=== PATIENT | male | born 1945 | race African-American/Black ===

== ENCOUNTER 2023-02-01 06:21 | Outpatient (REF) | payer MEDICARE, SELFPAY ==
[2023-02-01 07:05] LABS: MANUAL DIFF FLAG NO
[2023-02-01 07:39] LABS: Anion Gap 13 (12-20); Basophils Percent Auto 0.7 % (0-2); Blood Urea Nitrogen 15 mg/dL (9-16); Calcium 9.4 mg/dL (8.4-10.2); Carbon Dioxide 22 mmol/L (22-29); Chloride 109 mmol/L (96-108); Eosinophils Absolute Auto 0.1 X10*3/uL (0.0-0.4); Eosinophils Percent Auto 2.7 % (0-4); Estimated Glomerular Filt Rate > 60; Glucose Fasting 90 mg/dL (60-99); Hematocrit 34.4 % (42.0-52.0); Hemoglobin 11.5 g/dl (14.0-18.0); Imm Gran Abs Auto 0.01 X10*3/uL (0.00-0.03); Imm Gran Pct Auto 0.2 % (0.0-0.4); Lymphocytes Absolute Auto 0.9 X10*3/uL (1.2-4.9); Lymphocytes Percent Auto 19.8 % (20-40); Mean Corpuscular HGB Conc 33.4 g/dl (31.0-36.0); Mean Corpuscular Hemoglobin 33.9 pg (27.0-33.0); Mean Corpuscular Volume 101.5 fL (80.0-98.0); Mean Platelet Volume 9.9 fL (9.4-12.4); Monocytes Absolute Auto 0.3 X10*3/uL (0.1-1.2); Monocytes Percent Auto 6.8 % (2-11); Neutrophils Absolute Auto 3.1 x10*3/uL (2.0-8.3); Neutrophils Percent Auto 69.8 % (45-73); Platelet Count 225 X10*3/uL (160-400); Potassium 4.1 mmol/L (3.3-5.1); Red Blood Count 3.39 X10*6/uL (4.60-5.80); Red Cell Distribution Width 13.2 % (11.0-16.0); Sodium 140 mmol/L (135-145); White Blood Count 4.4 X10*3/uL (4.8-10.8)
[2023-02-01 07:56] LABS: Ferritin 221 ng/mL (20-250); Thyroid Stimulating Hormone 1.24 uIU/mL (0.32-4.0); Vitamin D 25-OH Total 25.5 ng/mL (>30)
[2023-02-01 08:09] LABS: Prostate Specific Antigen Scr 0.28 ng/mL (<0.05-4.0); Vitamin B12 488 pg/mL (200-900)
[2023-02-03 21:04] LABS: TS Negative Control Passed; TS Panel A 3; TS Panel B 0; TS Positive Control Passed; TSpotTB Negative (Negative)
== END 2023-02-01 06:22 | disposition home or self-care (01) ==
LOC: HO.HSH2E 06:21
PROVIDERS: Visit Provider Internal Medicine Medical Oncology
DX: N40.0 Benign prostatic hyperplasia without lower urinary tract symptoms (principal); G31.83 Neurocognitive disorder with Lewy bodies; F02.80 Dementia in other diseases classified elsewhere, unspecified severity, without behavioral disturbance, psychotic disturbance, mood disturbance, and anxiety; I10 Essential (primary) hypertension; C61 Malignant neoplasm of prostate; Z12.5 Encounter for screening for malignant neoplasm of prostate
CPT/HCPCS: 36415; 80048; 81001; 82306; 82607; 82728; 82746; 84153; 84443; 85025; 86481; 87086; 87088; 87186

== ENCOUNTER 2023-05-24 11:18 | Outpatient (REF) | payer MEDICARE, SELFPAY ==
[2023-05-24 11:38] LABS: Appearance Urine Clear; Color Urine Yellow; Glucose Urine UA Negative (Negative); Leukocyte Esterase Urine Negative (Negative); Nitrite Urine Negative (Negative); Urine Blood Negative (Negative); Urine Ketones Negative (Negative); Urine Protein Negative (Neg-Trace)
== END 2023-05-24 11:19 | disposition home or self-care (01) ==
LOC: HO.HSH2E 11:18
PROVIDERS: Visit Provider Internal Medicine Medical Oncology
DX: R45.1 Restlessness and agitation (principal)
CPT/HCPCS: 81003

== ENCOUNTER 2024-02-27 14:23 | Outpatient (REF) | payer MEDICARE, SELFPAY ==
[2024-02-27 14:31] LABS: Appearance Urine Clear; Color Urine Yellow; Glucose Urine UA Negative (Negative); Leukocyte Esterase Urine Negative (Negative); Nitrite Urine Negative (Negative); Specific Gravity - Urine 1.025 (1.005-1.025); Urine Blood Negative (Negative); Urine Ketones Negative (Negative); Urine Protein Negative (Neg-Trace)
== END 2024-02-27 14:24 | disposition home or self-care (01) ==
LOC: HO.HSH2E 14:23
PROVIDERS: Visit Provider Internal Medicine Endocrinology, Diabetes & Metabolism
DX: N40.1 Benign prostatic hyperplasia with lower urinary tract symptoms (principal); E11.9 Type 2 diabetes mellitus without complications
CPT/HCPCS: 81003

== ENCOUNTER 2025-03-20 05:59 | Outpatient (REF) | payer MEDICARE, SELFPAY ==
[2025-03-20 06:01] LABS: MANUAL DIFF FLAG NO
--- OUTSIDE RECORDS SUMMARY | 2025-03-20 06:01 | XMS_ITS | Encounter Summary ---
Author Organization [facility] Address [address] [place] [address] Care Team Providers Care Clinical Case Manager Name Role Phone Unavailable Primary Care Provider Unavailabl e Encounter Details Date Type Department Care Team (Late st Contact Info) Description 05/28/2023 Abstract [facility] [address] [place] [address] Inocente Cadena, DMD [address] [facility] [place] [address] Social History Tobacco Use Types Packs/Day Years Used Date Smoking Tobacco: Unknown Alcohol Use Standard Drinks/Week Comments Defer 0 (1 standard drink = 0.6 oz pur e alcohol) Sex and Gender Information Value Date Recorded Sex Assigned at Male 02/01/2023 1:16 PM EDT Legal Sex Male 1:12 PM EDT Gender Identity Male 02/01/2023 1:16 PM EDT Sexual Orientation Straight 02/01/2023 1: 16 PM EDT documented as of this encounter Plan of Treatment Not on file documented as of this encounter Visit Diagnoses Not on filedocumented in this encounter
--- OUTSIDE RECORDS SUMMARY | 2025-03-20 06:01 | XMS_ITS | Clinical Summary ---
Author Organization [employer] Address [address] [facility] [address] [place] [address] Care Team Providers Care Applications Engineering Manager Name Role Phone Unavailable Primary Care Provider Unavailabl e Allergies Active Allergy Reactions Criticality Noted Date Comments Memantine 06/17/2019 Medications amLODIPine (Norvasc) 10 MG tablet 10 mg. 2 Active gabapentin (Neurontin) 100 MG capsule 100 mg. 3 Active mirtazapine (Remeron) 30 MG tablet TAKE ONE-HALF TABLET BY MOUTH ONCE DAILY FOR DEPRESSION/MOOD 2 10/23/19 26 Active polyethylene glycol, PEG, 3350 (Glycolax) 17 GM/SCOOP powder 3 Active cholecalciferol (Vitamin D3) 25 MCG (1000 UT) tablet Take by mouth in the morning. Active acetaminophen (Tylenol) 325 MG tablet Take 325 mg by mouth. Active bisacodyl (Fleet Bisacodyl) 10 MG/30ML enema Insert 10 mg into the rectum 1 (one) time. Active docusate sodium (Colace) 100 MG capsule Take 100 mg by mouth 2 times daily. Active melatonin 3 MG tablet Take 3 mg by mouth. Active sennosides (Senokot) 8.6 MG tablet Take 1 tablet by mouth in the morning. Active magnesium hydroxide (Milk of Magnesia) 400 MG/5ML suspension Take 30 mL by mouth at bedtime. Active QUEtiapine (SEROquel) 25 MG tablet Take 25 mg by mouth at bedtime. Active Sodium Phosphate Monobasic granules Active guaiFENesin-dex tromethorphan (Robitussin DM) 100-10 MG/5ML syrup Take by mouth. Activ e simethicone (Mylicon) 80 MG chewable tablet Chew 80 mg every 6 (six) hours if needed for flatulence. Active docusate sodium (Colace) 100 MG capsule Take 100 mg by mouth 2 times daily. Active ipratropium (Atrovent) 0.03 % nasal spray Administer 2 sprays into each nostril every 12 (twelve) hours. Active lactulose (Chronulac) 10 GM/15ML solution Take 20 g by mouth 3 times daily. Active TAMSULOSIN HCL PO Take by mouth. Activ e thiamine (Vitamin B-1) 50 MG tablet Take 50 mg by mouth Once per day. 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 Bruno Zamorano. Biopsy results 09/12/16. Pathology sent to scan Mar 20, 2018 Entered By: AYANNA LI Comment: s/p radiation therapy 2018 Arthralgia of shoulder 04/09/2024 Overview (04/09/2024): Oct 02, 2011 Entered By: HIRAM JOHNSON Comment: Chronic left, see Rheumatology Consult Asymptomatic varicose veins 04/09/2024 Benign essential hypertension 04/09/2024 Benign prostatic hyperplasia 04/09/2024 Overview (04/09/2024): Feb 17, 2016 Entered By: AYANNA LI Comment: Dr. Zamorano [facility] [place]. Hx of nodular prostate, LUTS, no meds Feb 17, 2016 Entered By: FELIX LAKHANI Comment: [facility] notes sent to scan, addendum to MD note 11/2015 in [facility] Aug 23, 2016 Entered By: FELIX LAKHANI Comment: Prostate Biopsy August 2016 Bilateral tinnitus 04/09/2024 Calcaneal spur 04/09/2024 Contact with and (suspected) exposure to water p ollution 04/09/2024 Cortical senile cataract 04/09/2024 Debility 04/09/2024 Deficiency anemia 04/09/2024 Overview (04/09/2024): Aug 24, 2010 Entered By: HIRAM JOHNSON Comment: Takes Folic Acid and B!2 Supplement Dementia (CMS/HCC) 04/09/2024 Overview (04/09/2024): May 25, 2021 Entered By: BAL TOMLINSON Comment: updated. Exposure to potentially hazardous substance 03/30 Overview (04/09/2024): Jun 08, 2022 Entered By: BÁRBARA MENG Comment: [facility] Jun 08, 2022 Entered By: BÁRBARA MENG Comment: CAMP KIKE Gout 04/09/2024 Lewy body dementia 04/09/2024 Lipoma 04/09/2024 Nail dystrophy 04/09/2024 Neck pain 04/09/2024 Need for assistance with personal care Neurocognitive disorder with Lewy bodies (CODE) 04/09/2024 Onychomycosis of toenail 04/09/2024 Osteoarthritis 04/09/2024 Other general symptoms and signs 04/09/2024 Encounter for examination an d observation for other specified reasons 04/09/2024 Other specified counseling 04/09/2024 Posttraumatic stress disorder 04/09/2024 Overview (04/09/2024): May 25, 2021 Entered By: BAL TOMLINSON Comment: updated. Pressure injury, stage 3 04/09/2024 Pressure ulcer of left heel, stage 2 (CMS/HCC) 1 06/10/2023 Scar conditions and fibrosis of skin 04/09/2024 Unilateral inguinal hernia, with obstruction, without gangrene, not specified as recurrent 04/09/2024 Unspecified abnormalities of gait and mobility 1 06/10/2023 Visual hallucinations 04/09/2024 Overview (04/09/2024): May 25, 2021 Entered By: BAL TOMLINSON Comment: updated. Vitamin D deficiency 04/09/2024 Overview (04/09/2024): September 01, 2010 Entered By: HIRAM JOHNSON Comment: 08/27/10 Vit D 15L, Started on Vit D 1000IU/d Weight loss 04/09/2024 Acute pancreatitis 09/28/2018 Overview (04/09/2024): Feb 04, 2019 Entered By: AYANNA LI Comment: idopathic Encounters Date Type Department Care Team Description 12/31/2024 1:00 PM EDT Office Visit [facility] [address] [place] [address] Inocente Cadena DMD 12/24/2024 3:15 PM EDT Office Visit [facility] [address] [place] [address] Mary Anne Crews Dental calculus (Primary Dx); Dental plaque from Last 3 Months Social History Tobacco Use Types Packs/Day Years Used Date Smoking Tobacco: Unknown Tobacco Cessation:Counseling Given: Not Answered Alcohol Use Standard Drinks/Week Comments Defer 0 (1 standard drink = 0.6 oz pur e alcohol) Sex and Gender Information Value Date Recorded Sex Assigned at Male 02/01/2023 1:16 PM EDT Legal Sex Male 1:12 PM EDT Gender Identity Male 02/01/2023 1:16 PM EDT Sexual Orientation Straight 02/01/2023 1: 16 PM EDT Plan of Treatment Health Maintenance Due Date Last Done Comments Anal Pap 1944 Dental X-Ray: Bitewings 1944 Dental X-Ray: Full Mouth 1944 Depression Screening 1944 Lipid Panel 1944 SDOH Screening 1944 Alcohol/Substance Use Screening 1956 IPV Vaccines (2 of 3 - Adult catch-up series) 02/25/1965 01/28/1965 Hepatitis B Vaccines (1 of 3 - Risk 3-dose series) 2004 Pneumococcal Vaccine: 50+ Years (2 of 2 - PCV20 or PCV21) 02/19/2016 02/18/2015, 07/02/2009 RSV Patients and Patients Aged 60 years or older (1 - 1-dose 75+ series) 2019 Zoster Vaccines (3 of 3) 03/25/2020 01/29/2020, 12/2015 DTaP/Tdap/Td Vaccines (2 - Tdap) 10/18/2020 10/18/2010, 06/25/1999, 04/30/1989 COVID-19 Vaccine (4 - season) 2024 04/09/2021, 07/08/2020, 06/10/2020 Influenza Vaccine (#1) 2024 , 02/03/2021, 01/29/2020, Additional history exists Dental Prophylaxis 06/27/2025 12/24/2024, 0 09/10/2024, 06/05/2024, Additional history exists Dental Oral Exam 07/01/2025 12/31/2024, 12/2024, 04/09/2024, Additional history exists Tobacco Screening 12/31/2025 12/31/2024 Meningococcal Vaccine Aged Out 09/03/1999 No ramno pilar eligible based on patient's age to complete this topic Hepatitis A Vaccines Completed 11/16/1999, 05/07/19 00 HIB Vaccines Aged Out No longer eligi ble based on patient's age to complete this topic HPV Vaccines Aged Out No longer eligi ble based on patient's age to complete this topic Meningococcal B Vaccine Aged Out No l onger eligible based on patient's age to complete this topic RSV under 20 months Aged Out No longe r eligible based on patient's age to complete this topic Rotavirus Vaccines Aged Out No longer eligible based on patient's age to complete this topic Procedures Procedure Name Priority Date/Time Associated Diagnosis Comments PERIODIC ORAL EVALUATION - ESTABLISHED PATIENT Routine 12/31/2024 1:00 PM EDT TOPICAL APPLICATION OF FLUORIDE VARNISH Routine 12/24/2024 3:15 PM EDT Dental calculus Dental plaque PROPHYLAXIS - ADULT Routine 12/24/2024 3 :15 PM EDT Dental calculus Dental plaque from Last 3 Months Advance Directives Documents on File Type Date Recorded Patient Career Development Associate Expl anation HealthCare Proxy 02/09/2023 Healthcare proxy
[2025-03-20 06:29] LABS: Hematocrit 38.9 % (42.0-52.0); Hemoglobin 13.2 g/dl (14.0-18.0); Imm Gran Abs Auto 0.02 X10*3/uL (0.00-0.03); Imm Gran Pct Auto 0.3 % (0.0-0.4); Lymphocytes Absolute Auto 1.0 X10*3/uL (1.2-4.9); Mean Corpuscular HGB Conc 33.9 g/dl (31.0-36.0); Mean Corpuscular Hemoglobin 35.2 pg (27.0-33.0); Mean Corpuscular Volume 103.7 fL (80.0-98.0); NRBC Abs Auto 0.000 X10*3/uL (0.0-0.012); NRBC Pct Auto 0.0 /100WBC (0.0-0.2); Platelet Count 200 X10*3/uL (160-400); Red Blood Count 3.75 X10*6/uL (4.60-5.80); White Blood Count 6.4 X10*3/uL (4.8-10.8)
[2025-03-20 07:02] LABS: Anion Gap 12 (12-20); Blood Urea Nitrogen 20 mg/dL (9-16); Carbon Dioxide 22 mmol/L (22-29); Chloride 110 mmol/L (96-108); Estimated Glomerular Filt Rate > 60; Potassium 4.5 mmol/L (3.3-5.1); Sodium 139 mmol/L (135-145)
== END 2025-03-20 06:00 | disposition home or self-care (01) ==
LOC: HO.HSH2E 05:59
PROVIDERS: PCP Internal Medicine; Visit Provider Internal Medicine Endocrinology, Diabetes & Metabolism
DX: M19.90 Unspecified osteoarthritis, unspecified site (principal); F03.90 Unspecified dementia, unspecified severity, without behavioral disturbance, psychotic disturbance, mood disturbance, and anxiety
CPT/HCPCS: 36415; 80051; 82565; 84520; 85025

== ENCOUNTER 2025-03-23 06:07 | Outpatient (REF) | payer MEDICARE, SELFPAY ==
[2025-03-23 10:12] LABS: Vitamin B12 705 pg/mL (200-900)
== END 2025-03-23 06:08 | disposition home or self-care (01) ==
LOC: HO.WMHL 06:07
PROVIDERS: Visit Provider Internal Medicine Endocrinology, Diabetes & Metabolism
DX: D75.89 Other specified diseases of blood and blood-forming organs (principal)
CPT/HCPCS: 36415; 82607

== ENCOUNTER 2025-04-13 06:52 | Outpatient (REF) | payer MEDICARE, SELFPAY | END 2025-04-13 06:53 | disposition home or self-care (01) | LOC: HO.HSH2E 06:52 | PROVIDERS: Visit Provider Internal Medicine Endocrinology, Diabetes & Metabolism | DX: E74.39 Other disorders of intestinal carbohydrate absorption (principal); Z13.1 Encounter for screening for diabetes mellitus | CPT/HCPCS: 36415; 82947; 83036 ==